=== PATIENT | male | born 1970 | race Caucasian/White ===

== ENCOUNTER → 2018-01-21 | Outpatient (CLI) | payer OTHER, BC ==
[~2018-01-21] VITALS: Ht 172.7 cm; Wt 105.6 kg
[2018-01-21 15:06] VITALS: BP 121/86; PULSE 88; Ht 172.7 cm; Wt 105.6 kg
== END | disposition home or self-care (01) ==
LOC: C.NEUR 13:45
PROVIDERS: ATTEND Internal Medicine Pulmonary Disease
DX: G47.33 Obstructive sleep apnea (adult) (pediatric) (principal)

== ENCOUNTER → 2018-02-09 | Outpatient (CLI) | payer OTHER ==
--- NOTE | 2018-02-10 05:35 | SPLIT NIGHT TECHNICIAN REPORT ---
[facility] Split Night Polysomnogram - Press Tender Smoke Signal Report Study date: 02/09/2018 Referring Physician: Dr. Galdino Bell DO Name: DEIDRE CARVALHO Press Tender Smoke Signal: ZEB Orellana. Date of : 1970 Height: 47 years, Height 5' 8" Sex: Male Weight: 232.7 lbs Age: 47 Neck Circum: 17.5inches BMI: Medications: 35.38 Citalopram Hydrobromide 20mg, Bupropion HCL ER 150mg, Protonix 40mg, Patient History Study started on room air with no ETCO2 monitoring in room #8. 47 yr old male here tonight for a diagnostic psg. He complains of snoring, gasping and witnessed apneas. His ESS=9/24. Neck circ=17.5inches Parameters Monitored NPSG: E1-M2, E2-M1, Fp1-M2, Fp2-M1, F3-M2, F4-M2, F4-M1, C3-M2, C4-M2, C4-M1, O1-M2, O2-M2, O2-M1, T3-M2, T4-M1, P3-M2, P4-M1, CHIN1, CHIN2, HR, EKG, Legs, PFLOW, SNOR, FLOW, CFLOW, Tidal Volume, THOR, ABDO, SpO2, PLTH, CPRESS, ETCO2 Wave, ETCO2, pH SLEEP SUMMARY DATA DIAGNOSTIC TREATMENT Lights Out: 9:40:20 PM 12:10:50 AM Lights On: 11:57:20 PM 5:29:50 AM Total Recording Time (TRT): 137.0 min. 319.0 min. Total Sleep Time (TST): 122.0 min. 306.0 min. NREM Time: 117.5 min. 207.5 min. REM Time: 4.5 min. 98.5 min. Sleep Period Time (SPT): 128.0 min. 314.0 min. Sleep Efficiency (SE): 89 % 96 % Sleep Latency: 9.0 min. 5.0 min. Arousal Index: 21.6 3.5 PAP Treatment Levels: 5, 6, 7, 8, 9, 10, 11 * Optimal Pressure(s) SLEEP STAGING DATA DIAGNOSTIC TREATMENT Duration (min) TST % Duration (min) TST % Stage Wake: 15.0 min. -- 13.0 min. -- WASO: 6.0 min. -- 8.0 min. -- NREM: 117.5 min. 96 % 207.5 min. 68 % Stage N1: 12.0 min. 10 % 11.0 min. 4 % Stage N2: 91.5 min. 75 % 101.5 min. 33 % Stage N3: 14.0 min. 11 % 95.0 min. 31 % REM: 4.5 min. 4 % 98.5 min. 32 % POSITIONAL DATA Event Count Index Event Count Index Supine: N/A N/A 25 20.4 Supine NREM: N/A N/A 18 16.1 Supine REM: N/A N/A 7 65 Non-Supine: 115 56.6 24 6.2 Non-Supine NREM: 113 57.7 18 7.7 Non-Supine REM: 2 26.7 6 3.9 AROUSAL SUMMARY DATA: Event Count Index Event Count Index Apnea Arousals: 8 6.9 7 4.1 Hypopnea Arousals: 31 15.2 6 1.2 Snore Arousals: 3 1.5 1 0.2 PLM Arousals: 0 0.0 0 0.0 Non-Specific Arousals: 4 2.0 6 1.2 Total Arousals: 44 21.6 18 3.5 MYOCLONUS (PLM) Event Count Index Event Count Index PLM: 6 3.0 0 0.0 PLM AROUSAL: 0 0.0 0 0.0 PLM W/O AROUSAL 6 3.0 0 0.0 PLM W/RESP EVENT 1 0.0 0 0.0 MYOCLONUS (PLM) Event Count Index Event Count Index LM: 4 31.0 20 3.9 LM AROUSAL: 4 2.0 3 0.6 LM W/O AROUSAL LM W/RESP EVENT LM NON SPECIFIC 21 10.3 14 2.7 HEART RATE DATA DIAGNOSTIC TREATMENT Sleep (bpm): 78 75 REM (bpm): 89 93 NREM (bpm): 91 91 Tachycardia Count: 0 0 Tachycardia Duration: 0.00 0 Bradycardia Count: 0 0 Bradycardia Duration: 0.00 0 DIAGNOSTIC PORTION TREATMENT PORTION RESPIRATORY DATA Event Count Index Event Count Index AHI: -- 56.6 -- 9.6 RDI: -- 56.6 -- 10 Obstructive Apnea: 13 6.4 15 2.9 Central Apnea: 0 0.0 6 1.2 Mixed Apnea: 1 0.5 0 0.0 Hypopnea: 101 49.7 28 5.5 RERA: 0 0.0 0 0.0 Total Apneas: 14 6.9 21 4.1 RESPIRATORY DATA REM NREM SLEEP REM NREM SLEEP Supine Position: Obstructive Apneas: N/A N/A N/A 0 10 10 Central Apneas: N/A N/A N/A 0 0 0 Mixed Apneas: N/A N/A N/A 0 0 0 Hypopneas: N/A N/A N/A 7 8 15 RERA N/A N/A N/A 0 0 0 Total Supine Events: N/A N/A N/A 7 18 25 Supine AHI: N/A N/A N/A 65 16.1 20.4 Supine RDI: N/A N/A N/A 64.6 16.1 20.4 REM NREM SLEEP REM NREM SLEEP Non-Supine Position: Obstructive Apneas: 2 11 13 0 5 5 Central Apneas: 0 0 0 1 5 6 Mixed Apneas: 0 1 1 0 0 0 Hypopneas: 0 101 101 5 8 13 RERA 0 0 0 0 0 0 Total Supine Events: 2 113 115 6 18 24 Supine AHI: 26.7 57.7 56.6 3.9 7.7 6.2 Supine RDI: 26.7 57.7 56.6 3.9 7.7 6.2 OXYGEN DESTAURATION DATA: Event Count Index Event Count Index REM Desaturations: 1 13.3 21 12.8 NREM Desaturations: 99 50.6 41 11.9 SNORE DATA DIAGNOSTIC TREATMENT Snore Time: 17.3 12:15:50 AM Snore TST%: 5 2 Snore Arousal Count: 3 1 Snore Arousal Index: 1.5 0.2 Desaturation Event Summary: Minimum %SpO2 Event Count Mean/Min/Max Duration(sec.) Desaturation Index % Time In Bed > 90 169 30.1 / 4.8 / 59.3 31.0 73.0 86 - 90 22 21.9 / 7.0 / 51.8 12.2 24.2 81 - 85 1 6.0 / 6.0 / 6.0 5.3 2.5 76 - 80 0 N/A 0.0 0.3 71 - 75 0 N/A 0.0 0.0 66 - 70 0 N/A 0.0 0.0 61 - 65 0 N/A 0.0 0.0 56 - 60 0 N/A 0.0 0.0 51 - 55 0 N/A 0.0 0.0 < 50 0 N/A 0.0 0.0 OXYGEN SATURATION DATA DIAGNOSTIC TREATMENT SpO2 Mean Sleep: 91 % 92 % SpO2 Mean REM: 89 % 93 % SpO2 Mean NREM: 91 % 91 % SpO2 Minimum Sleep: 78 % 79 % SpO2 Minimum REM: 81 % 85 % SpO2 Minimum NREM: 78 % 79 % Time Below 90% (TST): 38.5 20.8 Time Below 88% (TST): 21.0 8.2 Total REM NREM Awake <50% 0.0 min. 0.0 min. 0.0 min. 0.0 min. 51 - 60% 0.0 min. 0.0 min. 0.0 min. 0.0 min. 61 - 70% 0.0 min. 0.0 min. 0.0 min. 0.0 min. 71 - 80% 1.2 min. 0.0 min. 1.2 min. 0.0 min. 81 - 90% 119.7 min. 7.7 min. 101.8 min. 10.2 min. 91 - 100% 327.1 min. 94.1 min. 216.7 min. 16.3 min. Average 92 93 91 91 Minimum SpO2 78 81 78 81 Desaturation Event Index 23.2 12.8 25.8 32.1 # Desat. Events below 89% 125 11 105 9 Time(%) with Saturation below 89% 10.7 0.8 8.8 1.1 Time(min.) with Saturation below 89% 48.0 3.7 39.6 4.7 Recording Press Tender Smoke Signal Comments: Mr. Carvalho slept in the right, left and supine positions. No cardiac arrhythmia noted. Some leg and arm movements were noted. No bruxism noted. Snoring was noted and scored as a 4 on a scale of 1 through 5. (0=no snoring, 5=snoring loud enough to be heard through a closed door or down the nguyen way) At 12:10am he had met specific Split-Night criteria during the diagnostic portion of this study. CPAP was initiated at +5 CMH2O and up-titrated to a level of +11 CMH2O. A medium Quattro Air full face mask by [employer] was used during titration. He did not use the restroom during the night. He stated that he slept better than usual. The final report will be interpreted and signed by a sleep physician. The completed physician report will then be placed in the patient medical record. Therapy Event: Therapy (cm H20) 0 5 6 7 8 9 10 11 Total Time at Pressure (min.) 137.0 13.5 13.4 54.6 123.9 5.3 22.6 85.6 TST at Pressure (min.) 122.0 4.5 10.9 54.6 122.9 5.3 22.6 85.1 # Periods 1 1 1 1 1 1 1 1 Sleep Onset (min.) 9.0 5.0 0.0 0.0 0.0 0.0 0.0 0.0 REM Onset (min.) 130.0 N/A N/A 19.1 0.0 N/A 2.2 0.0 Sleep Efficiency % 89 33 81 100 99 100 100 99 Wakefulness (%) 10.9 66.7 18.6 0.0 0.8 0.0 0.0 0.6 Wakefulness (min.) 15.0 9.0 2.5 0.0 1.0 0.0 0.0 0.5 NREM 1 (%) 8.8 25.8 29.9 0.0 1.2 0.0 4.4 1.2 NREM 1 (min.) 12.0 3.5 4.0 0.0 1.5 0.0 1.0 1.0 NREM 2 (%) 66.8 7.4 51.5 14.8 32.2 100.0 18.7 42.0 NREM 2 (min.) 91.5 1.0 6.9 8.1 40.0 5.3 4.2 36.0 NREM 3 (%) 10.2 0.0 0.0 20.2 58.5 0.0 0.0 13.4 NREM 3 (min.) 14.0 0.0 0.0 11.0 72.5 0.0 0.0 11.5 REM (%) 3.3 0.0 0.0 65.1 7.3 0.0 76.8 42.8 REM (min.) 4.5 0.0 0.0 35.5 9.0 0.0 17.4 36.6 # Arousals 44 2 6 0 7 0 1 2 Arousal Index 21.6 26.8 32.9 0.0 3.4 0.0 2.7 1.4 # Snore 565 0 8 9 63 21 41 3 Snore Index 277.9 0.0 43.9 9.9 30.7 237.3 108.9 2.1 AHI 56.6 93.7 49.4 5.5 4.9 67.8 29.2 0.7 AHI Supine N/A N/A N/A N/A 9.2 67.8 62.7 N/A AHI Non-Supine 56.6 93.7 49.4 5.5 0.9 N/A 4.6 0.7 NREM AHI 57.7 93.7 49.4 0.0 5.3 67.8 34.4 1.2 REM AHI 26.7 N/A N/A 8.4 0.0 N/A 27.7 0.0 RDI 56.6 93.7 49.4 5.5 4.9 67.8 29.2 0.7 # Obstructive 13 1 3 0 2 6 2 1 # Central Ap 0 5 0 0 0 0 1 0 # Mixed 1 0 0 0 0 0 0 0 # Hypopneas 101 1 6 5 8 0 8 0 RERAS 0 0 0 0 0 0 0 0 Total Respiratory Events 115 7 9 5 10 6 11 1 Time Below SpO2 89.00% (min.) 30.5 0.8 4.7 0.8 2.0 1.7 2.7 0.1 Mean NREM SpO2 (%) 91 91 89 91 91 90 91 93 Mean REM SpO2 (%) 89 N/A N/A 92 93 N/A 92 94 Mean Sleep SpO2 (%) 91 91 89 92 91 90 92 93 Min NREM SpO2 (%) 78 83 79 88 80 80 84 88 Min REM SpO2 (%) 81 N/A N/A 88 89 N/A 85 91 Position Supine (min.) 0.0 0.0 0.0 0.0 58.6 5.3 9.6 0.0 Position Non-supine (min.) 122.0 4.5 10.9 54.6 64.3 0.0 13.0 85.1 LM Index Sleep 33.9 0.0 16.5 0.0 5.9 0.0 2.7 2.8 LM Index NREM 32.7 0.0 16.5 0.0 6.3 0.0 0.0 4.9 LM Index REM 66.7 N/A N/A 0.0 0.0 N/A 3.5 0.0 Mean Heart Rate (bpm) 78 73 73 77 73 77 75 75 Min Heart Rate (bpm) 52 69 68 67 62 72 60 67
--- NOTE | 2018-02-13 14:44 | POLYSOMNOGRAPH REPORT ---
SLEEP STUDY REPORT CLINICAL DATA: The patient is a 47-year-old male with a history of snoring, observed apneas, and nocturnal gasping. His [place] sleepiness scale score is 9 out of a possible 24. This was an in-lab overnight split study. SLEEP ARCHITECTURE: During the diagnostic portion of the study, the sleep period time was 128 minutes. The total sleep time was 122 minutes. The sleep efficiency was borderline normal at 89%. The sleep latency was 9 minutes. Sleep consisted of stage N1 10%, stage N2 75%, stage N3 11%, stage REM 4%. During the treatment portion of the study, the patient was treated with nasal CPAP. The sleep period time was 314 minutes. The total sleep time was 306 minutes. The sleep efficiency was normal at 96%. The sleep latency was 5 minutes. Sleep consisted of stage N1 4%, stage N2 33%, stage N3 31%, stage REM 32%. AROUSAL DATA: During the diagnostic portion of the study, the patient had a total of 8 apnea arousals, 31 hypopnea arousals, 3 snoring arousals, and 4 nonspecific arousals. The arousal index was 21.6. During the therapeutic portion, the patient had a total of 7 apnea arousals, 6 hypopnea arousals, 1 snoring arousal, and 6 nonspecific arousals. The arousal index was 3.5. PLM DATA: During the diagnostic portion of the study, the patient had a total of 6 periodic limb movements for a PLM index of 3.0. There were zero arousals associated with limb movements. During the therapeutic portion of the study, there were zero periodic limb movements. EKG: The underlying cardiac rhythm was normal sinus. The cardiac rates ranged from 75-93 beats per minute. No arrhythmia noted. RESPIRATORY DATA: During the diagnostic portion of the study, the patient had a total of 115 respiratory events including 13 obstructive apneas, 1 mixed apnea, and 101 hypopneas. Hypopneas were scored according to the 4% desaturation rule. The apnea hypopnea index was severely elevated at 56.6 events per hour. During the treatment portion of the study, the patient's respiratory events were treated with nasal CPAP which was titrated up to a final pressure of 11 cm. He had a total of 49 respiratory events including 15 obstructive apneas, 6 central apneas, and 28 hypopneas. The apnea hypopnea index was 9.6. At the final CPAP pressure of 11 cm, the apnea-hypopnea index was only 0.7 events per hour. OXIMETRY DATA: During the diagnostic portion of the study, the mean saturation was 89%. The minimum saturation was 78%. There was a total of 21 minutes with saturations less than 88%. During the treatment portion of the study, the mean saturation was 93%. The minimum saturation was 79%. There was a total of 8.2 minutes with saturations less than 88%. At the final pressure, there was no significant desaturations. 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 Carvalho slept in the right, left, and supine positions. No cardiac arrhythmia noted. Some leg and arm movements were noted. No bruxism noted. Snoring was noted and scored as a 4 on a scale of 1 through 5. At 12:10 a.m., he had met specific split night criteria during the diagnostic portion of the study. CPAP was initiated at 5 cm and up titrated to a level of 11 cm. A medium Quattro Air full facemask by [employer] was used during this titration. He did not use the restroom during the night. He stated that he slept better than usual. IMPRESSION: Severe obstructive sleep apnea - resolved with nasal CPAP at 11 cm. COMMENTS: The patient had severe sleep apnea as noted. He responded very well to nasal CPAP. His sleep efficiency improved. The arousal index dramatically decreased. There was a significant increase in stage N3 and stage REM during CPAP. RECOMMENDATIONS: 1. It is advised that the patient be treated with nasal CPAP at 11 cm. 2. It is advised that he be started on a [employer] Quattro Air full face mask, size medium. 3. Weight loss is advised in light of the elevation of body mass index of 35.38. 4. If possible, the patient should avoid sleeping in the supine position. 5. The patient should be seen in followup between day 31 and day 90 as per insurance requirements.
== END | disposition home or self-care (01) ==
LOC: C.NEUR 21:00
PROVIDERS: ATTEND Internal Medicine Pulmonary Disease
DX: G47.33 Obstructive sleep apnea (adult) (pediatric) (principal); E66.9 Obesity, unspecified